=== PATIENT | male | born 1945 | race Two or more races ===

== ENCOUNTER 2018-07-21 13:46 | Emergency (ER) | payer MEDICARE, OTHER ==
[~2018-07-21] VITALS: Ht 170.2 cm; Wt 91.2 kg
[2018-07-21 13:56] VITALS: BP 137/73
[2018-07-21] MEDS ORDERED: KETOROLAC TROMETHAMINE INJ 30 MG/ML VIAL ONE (14:25)
[2018-07-21] MEDS ORDERED: KETOROLAC TROMETHAMINE INJ 60 MG/2 ML VIAL IM ONE (14:30)
== END 2018-07-21 14:39 | disposition home or self-care (01) ==
LOC: ER 13:48
DX: M54.5 Low back pain (principal)
CPT/HCPCS: 96372; 99283; A4606; J1885; Z7610